=== PATIENT | female | born 1985 | race Caucasian/White ===

== ENCOUNTER 2017-03-23 16:55 | Emergency (ER) | payer MEDICAID ==
[~2017-03-23] VITALS: Ht 165.1 cm; Wt 61.6 kg
[2017-03-23 17:19] VITALS: BP 105/66; PULSE 105; RESP 18; TEMP 98.4
[2017-03-23] MEDS ORDERED: SODIUM CHLOR 0.9% 1000 ML INJ 1,000 ML IV ONE (17:29)
[2017-03-23] MEDS ORDERED: SODIUM CHLORIDE 0.9% FLUSH 10 ML FLUSH IVF PRN (17:30)
[2017-03-23 17:57] LABS: AUTOMATED NEUTROPHIL # 7.4 TH/MM3 (1.8-7.7); BASOPHIL # 0.1 TH/MM3 (0-0.2); BASOPHIL % 0.5 % (0.0-2.0); EOSINOPHIL # 0.2 TH/MM3 (0-0.4); EOSINOPHIL % 2.3 % (0.0-4.0); HEMATOCRIT 41.6 % (35.0-46.0); HEMO FLAGS DIFF FINAL; LYMPH % 22.5 % (9.0-44.0); LYMPHOCYTE # 2.3 TH/MM3 (1.0-4.8); MEAN CELL VOLUME 92.2 FL (80.0-100.0); MEAN CORPUSCULAR HEMOGLOBIN 30.6 PG (27.0-34.0); MEAN CORPUSCULAR HGB CONC 33.2 % (32.0-36.0); MONO % 4.3 % (0.0-8.0); NEUT % 70.4 % (16.0-70.0); PLATELET COUNT 210 TH/MM3 (150-450); RED BLOOD COUNT 4.51 MIL/MM3 (4.00-5.30); RED CELL DISTRIBUTION WIDTH 12.3 % (11.6-17.2); WHITE BLOOD COUNT 10.4 TH/MM3 (4.0-11.0)
--- NOTE | 2017-03-23 17:59 | PD ---
HPI Chief Complaint: Related Problem Time Seen by Provider: 17:37 Travel History International Travel<30 days: No Contact w/Intl Traveler<30days: No Traveled to known affect area: No History of Present Illness HPI Patient is a 31-year-old female who presents to emergency room with vaginal bleeding for the past week. Patient reports that she is [id number], patient reports that she is about 8 weeks at this time. Patient reports that one week ago, she began to have vaginal spotting. patient reports that spotting has progressed and she did fill up a sanitary pad in an hour prior to coming to the ER. Patient reports increased lower abdominal cramping, patient is concerned of a possible miscarriage. Patient has not follow-up with ENTRY TECH yet as she recently moved to the area from [place]. Patient with no fever or chills, reports that she has never had a miscarriage and in the past. Patient has delivered for full term babies in her past with no complications PFSH Past Medical History Medical History: Denies Significant Hx ?: LMP: Jan Past Surgical History Surgical History: No Previous Surgery Social History Alcohol Use: No Tobacco Use: No Substance Use: No Allergies-Medications (Allergen,Severity, Reaction): Coded Allergies: No Known Allergies (Unverified , 03/23/17) Reported Meds & Prescriptions Reported Meds & Active Scripts Active Reported Adderall (Amphetamine-Dextroamphetamine) 30 Mg Tab 30 Mg PO DAILY Avoid late evening doses. Space doses at least 4 to 6 hours if more than once/day dosing. Review of Systems General / Constitutional: No: Fever Eyes: No: Visual changes HENT: No: Headaches Cardiovascular: No: Chest Pain or Discomfort Respiratory: No: Shortness of Breath Gastrointestinal: Positive: Abdominal Pain, No: Nausea, Vomiting, Diarrhea Genitourinary: Positive: Vaginal Bleeding, No: Dysuria Musculoskeletal: No: Pain Skin: No Rash Neurologic: No: Weakness Psychiatric: No: Depression Endocrine: No: Polydipsia Hematologic/Lymphatic: No: Easy Bruising Physical Exam Narrative GENERAL: Moderate distress SKIN: Focused skin assessment warm/dry. HEAD: Atraumatic. Normocephalic. EYES: Pupils equal and round. No scleral icterus. No injection or drainage. ENT: No nasal bleeding or discharge. Mucous membranes pink and moist. NECK: Trachea midline. No JVD. CARDIOVASCULAR: Regular rate and rhythm. No murmur appreciated. RESPIRATORY: No accessory muscle use. Clear to auscultation. Breath sounds equal bilaterally. GASTROINTESTINAL: Abdomen soft, non-tender, nondistended. Hepatic and splenic margins not palpable. MUSCULOSKELETAL: No obvious deformities. No clubbing. No cyanosis. No edema. NEUROLOGICAL: Awake and alert. No obvious cranial nerve deficits. Motor grossly within normal limits. Normal speech. PSYCHIATRIC: Appropriate mood and affect; insight and judgment normal. Data Data Last Documented VS Vital Signs Date Time Temp Pulse Resp B/P (MAP) Pulse Ox O2 Delivery O2 Flow Rate FiO2 03/23/17 18:21 98 Room Air 03/23/17 17:19 98.4 105 18 105/66 (79) Orders Orders Beta Hcg (Quant/Titer) (03/23/17 17:29) Complete Blood Count With Diff (03/23/17 17:29) Basic Metabolic Panel (Bmp) (03/23/17 17:29) Complete Rh (03/23/17 17:29) Type And Screen (03/23/17 17:29) Urinalysis - C+S If Indicated (03/23/17 17:29) Iv Access Insert/Monitor (03/23/17 17:29) Sodium Chloride 0.9% Flush (Ns Flush) (03/23/17 17:30) Sodium Chlor 0.9% 1000 Ml Inj (Ns 1000 M (03/23/17 17:29) Acetaminophen (Tylenol) (03/23/17 18:00) Ed Urine Pregnancytest Poc (03/23/17 18:35) Us Pelvis (Ques Pr/Ect)W Trans (03/23/17 ) Morphine Inj (Morphine Inj) (03/23/17 20:00) Ketorolac Inj (Toradol Inj) (03/23/17 20:00) Labs Laboratory Tests Test 03/23/17 17:40 03/23/17 17:45 Urine Color YELLOW Urine Turbidity CLEAR Urine pH 6.0 Urine Specific [place] 1.011 Urine Protein NEG mg/dL Urine Glucose (UA) NEG mg/dL Urine Ketones NEG mg/dL Urine Occult Blood LARGE Urine Nitrite NEG Urine Bilirubin NEG Urine Leukocyte Esterase NEG Urine RBC 50-99 /hpf Urine WBC 0-2 /hpf Urine Squamous Epithelial Cells 0-5 /hpf Microscopic Urinalysis Comment CULT NOT INDICATED White Blood Count 10.4 TH/MM3 Red Blood Count 4.51 MIL/MM3 Hemoglobin 13.8 GM/DL Hematocrit 41.6 % Mean Corpuscular Volume 92.2 FL Mean Corpuscular Hemoglobin 30.6 PG Mean Corpuscular Hemoglobin Concent 33.2 % Red Cell Distribution Width 12.3 % Platelet Count 210 TH/MM3 Mean Platelet Volume 8.9 FL Neutrophils (%) (Auto) 70.4 % Lymphocytes (%) (Auto) 22.5 % Monocytes (%) (Auto) 4.3 % Eosinophils (%) (Auto) 2.3 % Basophils (%) (Auto) 0.5 % Neutrophils # (Auto) 7.4 TH/MM3 Lymphocytes # (Auto) 2.3 TH/MM3 Monocytes # (Auto) 0.4 TH/MM3 Eosinophils # (Auto) 0.2 TH/MM3 Basophils # (Auto) 0.1 TH/MM3 CBC Comment DIFF FINAL Differential Comment Blood Urea Nitrogen 5 MG/DL Creatinine 0.98 MG/DL Random Glucose 88 MG/DL Calcium Level 8.2 MG/DL Sodium Level 140 MEQ/L Potassium Level 3.6 MEQ/L Chloride Level 105 MEQ/L Carbon Dioxide Level 27.5 MEQ/L Anion Gap 8 MEQ/L Estimat Glomerular Filtration Rate 66 ML/MIN Human Chorionic Gonadotropin, Quant 3687 MIU/ML MDM Medical Decision Making Medical Screen Exam Complete: Yes Emergency Medical Condition: Yes Medical Record Reviewed: Yes Interpretation(s) Vital Signs Date Time Temp Pulse Resp B/P (MAP) Pulse Ox O2 Delivery O2 Flow Rate FiO2 03/23/17 17:19 98.4 105 18 105/66 (79) Differential Diagnosis Spontaneous miscarriage versus complete miscarriage, early , ectopic Narrative Course Patient is a [id number] who presents to emergency room 8 week with irregular vaginal bleeding for the past week which has been becoming heavier today with increased abdominal cramping During the course of the patients emergency department visit, the patients history, examination, and differential diagnosis were reviewed with the patient. The patient was placed on a fish cleaner with oximetry and frequent blood pressure monitoring. The patient had a 20-gauge IV access obtained and blood work sent for analysis. The patient was initially provided IV fluids as well as acetaminophen. The patients laboratory studies were reviewed and remarkable for: Laboratory Tests Test 03/23/17 17:40 03/23/17 17:45 Urine Color YELLOW (YELLW/STRAW) Urine Turbidity CLEAR (CLEAR) Urine pH 6.0 (5.0-8.5) Urine Specific [place] 1.011 (1.002-1.035) Urine Protein NEG mg/dL (NEG-TRACE) Urine Glucose (UA) NEG mg/dL (NEG) Urine Ketones NEG mg/dL (NEG) Urine Occult Blood LARGE (NEG) Urine Nitrite NEG (NEG) Urine Bilirubin NEG (NEG) Urine Leukocyte Esterase NEG (NEG) Urine RBC 50-99 /hpf (0-3) Urine WBC 0-2 /hpf (0-5) Urine Squamous Epithelial Cells 0-5 /hpf (0-5) Microscopic Urinalysis Comment CULT NOT INDICATED White Blood Count 10.4 TH/MM3 (4.0-11.0) Red Blood Count 4.51 MIL/MM3 (4.00-5.30) Hemoglobin 13.8 GM/DL (11.6-15.3) Hematocrit 41.6 % (35.0-46.0) Mean Corpuscular Volume 92.2 FL (80.0-100.0) Mean Corpuscular Hemoglobin 30.6 PG (27.0-34.0) Mean Corpuscular Hemoglobin Concent 33.2 % (32.0-36.0) Red Cell Distribution Width 12.3 % (11.6-17.2) Platelet Count 210 TH/MM3 (150-450) Mean Platelet Volume 8.9 FL (7.0-11.0) Neutrophils (%) (Auto) 70.4 % (16.0-70.0) Lymphocytes (%) (Auto) 22.5 % (9.0-44.0) Monocytes (%) (Auto) 4.3 % (0.0-8.0) Eosinophils (%) (Auto) 2.3 % (0.0-4.0) Basophils (%) (Auto) 0.5 % (0.0-2.0) Neutrophils # (Auto) 7.4 TH/MM3 (1.8-7.7) Lymphocytes # (Auto) 2.3 TH/MM3 (1.0-4.8) Monocytes # (Auto) 0.4 TH/MM3 (0-0.9) Eosinophils # (Auto) 0.2 TH/MM3 (0-0.4) Basophils # (Auto) 0.1 TH/MM3 (0-0.2) CBC Comment DIFF FINAL Differential Comment Blood Urea Nitrogen 5 MG/DL (7-18) Creatinine 0.98 MG/DL (0.50-1.00) Random Glucose 88 MG/DL (74-106) Calcium Level 8.2 MG/DL (8.5-10.1) Sodium Level 140 MEQ/L (136-145) Potassium Level 3.6 MEQ/L (3.5-5.1) Chloride Level 105 MEQ/L (98-107) Carbon Dioxide Level 27.5 MEQ/L (21.0-32.0) Anion Gap 8 MEQ/L (5-15) Estimat Glomerular Filtration Rate 66 ML/MIN (>89) Human Chorionic Gonadotropin, Quant 3687 MIU/ML (0-5) Radiology studies were reviewed and remarkable for: Last Impressions Pelvis Ultrasound 03/23/17 0000 Signed Impressions: Service Date/Time: Thursday, March 23, 2017 23:45 - CONCLUSION: 1. Gestational sac in the lower cervical region. No heart tones. Probable impending . 2. Cystic structure right ovary likely corpus luteum cyst. Brody Mcmanus MD Hemoglobin 13.8, hCG Quant 3687, UA with large blood, 50-99 red blood cells, patients blood type is O+ Patient's pelvic ultrasound shows a gestational sac in the lower cervical region , no heart tones, palpable impending . I reviewed all labs and all studies as well as all findings with patient and her in detail, understands impending miscarriage. Patient will follow-up with her ENTRY TECH, she will return to the emergency room as needed. Signs and symptoms of when to return to the emergency room was reviewed patient in detail. Patient is thankful for care Diagnosis Primary Impression: Inevitable spontaneous Referrals: Teresa Medley MD Patient Instructions: General Instructions Additional Instructions: Please provide patient with a copy of their lab work and studies at discharge* * Please follow up with your primary care doctor in 2-3 days Return to the ER if symptoms worsen or progress Return to the ER as needed Please have your ENTRY TECH follow your hCG Quant until 0 Please follow up with your cherry picker operator as soon as possible Disposition: 01 DISCHARGE HOME Condition: Stable Day Moreno DO Mar 23, 2017 17:59
[2017-03-23] MEDS ORDERED: ACETAMINOPHEN 325 MG TAB PO ONE (18:00)
[2017-03-23 18:02] LABS: BLOOD, URINE LARGE (NEG); GLUCOSE,URINE NEG (NEG); KETONE, URINE NEG (NEG); NITRITE,URINE NEG (NEG)
[2017-03-23 18:06] LABS: URINE COLOR YELLOW (YELLW/STRAW)
[2017-03-23 18:07] LABS: COMMENT (UR) CULT NOT INDICATED; CULTURE IF INDICATED CULT NOT INDICATED; SQUAMOUS EPITHELIAL CELL URINE 0-5 /hpf (0-5); WBC, URINE 0-2 /hpf (0-5)
[2017-03-23 18:08] LABS: POTASSIUM 3.6 MEQ/L (3.5-5.1)
[2017-03-23 18:12] LABS: BICARBONATE 27.5 MEQ/L (21.0-32.0)
[2017-03-23] MEDS ORDERED: ADDE30TA PO (18:19)
[2017-03-23 18:21] VITALS: O2SAT 98
--- NOTE | 2017-03-23 19:36 | RADRPT ---
EXAM DATE/TIME: 03/23/2017 23:45 [facility] COMPARISON: No previous studies available for comparison. INDICATIONS : Bleeding with . LAB(S): Beta-hC MEDICAL HISTORY : . SURGICAL HISTORY : None. ENCOUNTER: Initial ACUITY: 1 week PAIN SCORE: 8/10 LOCATION: Bilateral pelvis MEASUREMENTS: UTERUS: 9.2 x 5.0 x 4.8 cm ENDOMETRIAL STRIPE: 4 mm RIGHT OVARY: 3.7 x x 2.0 cm LEFT OVARY: NOT VISUALIZED FREE FLUID: No FHR: NOT VISUALIZED BPM FINDINGS: UTERUS: gestational sac in the lower cervical region. pole identified. No heart tone s. RIGHT OVARY: cystic structure with minimal internal echoes measures 1.7 x 1.5 x 1.9 cm. LEFT OVARY: Not visualized. MISCELLANEOUS: No free fluid. CONCLUSION: 1. Gestational sac in the lower cervical region. No heart tones. Probable impending . 2. Cystic structure right ovary likely corpus luteum cyst. Brody Mcmanus MD on March 23, 2017 at 19:32 Board Certified Radiologist. This report was verified electronically.
[2017-03-23] MEDS ORDERED: KETOROLAC TROMETHAMINE 30 MG/ML (IVP) VIAL IV PUSH ONE (20:00)
[2017-03-23] MEDS ORDERED: MORPHINE SULFATE 4 MG/ML INJ IV PUSH ONE (20:00)
[2017-03-23 21:11] VITALS: BP 96/69
[2017-03-23 21:13] VITALS: RESP 16
== END 2017-03-23 21:13 | disposition home or self-care (01) ==
LOC: PHED 16:55
DX: O03.9 Complete or unspecified spontaneous abortion without complication (principal); N83.201 Unspecified ovarian cyst, right side; Z3A.08 8 weeks gestation of pregnancy; Z79.899 Other long term (current) drug therapy
CPT/HCPCS: 76700; 76817; 80048; 81001; 84702; 84703; 85025; 86850; 86900; 86901; 96361; 96374; 96375; 99285; J1885; J2270; J7030